=== PATIENT | male | born 1990 | race Caucasian/White ===

== ENCOUNTER 2020-10-16 09:23 | Emergency (ER) | payer BC, SELFPAY ==
[2020-10-16 09:24] VITALS: BP 157/86; PULSE 116; RESP 20; TEMP 36.6; O2SAT 98; BMI 42.0
[2020-10-16 09:39] VITALS: BP 157/86; PULSE 116; RESP 20; TEMP 36.6; O2SAT 97; O2SAT 98
--- NOTE | 2020-10-16 09:44 | EDS_ITS ---
HPI History of Present Illness Chief Complaint: Shortness of Breath Informant: patient Narrative Narrative: Patient is a 30-year-old male who presents to the emergency department for multiple complaints related to Covid. He was diagnosed with Covid on Monday and has had symptoms over the past week. He states that most of his symptoms occur at nighttime. He gets fevers, worsening cough, body aches all at night. Yesterday he was coughing so hard that he passed out. He states that things have calmed down at this point. He has been nauseous and dry heaving and states he cannot keep down fluids very well. His cough has been dry. Denies any significant shortness of breath. He does have left upper quadrant abdominal pain. Patient denies a smoking history. No known medical problems that he takes medications for. No leg swelling or calf pain. Patient does occasionally take Tylenol for symptoms but does not feel this helped so he has not been taking it lately. Patient has been seen 2 other times since onset of symptoms at outside emergency departments. PFSH PFSH Home Medications albuterol sulfate 1 - 2 puff INHALATION Q4H PRN PRN #1 inhaler 03/12/17 [Rx Last Taken Unknown] naproxen 500 mg PO BID PRN #20 tab 03/12/17 [Rx Last Taken Unknown] ondansetron 4 mg PO Q8H PRN PRN #10 tab 03/12/17 [Rx Last Taken Unknown] ondansetron 4 mg PO QHS PRN 4 Days #10 tab 10/16/20 [Rx Last Taken Unknown] Allergy/AdvReac Type Severity Reaction Status Date / Time No Known Allergies Allergy Verified 10/16/20 09:27 Social History Smoking Status: Never smoker [facility] ED Constitutional Constitutional ED: Reports chills and fever(s) Eyes Eyes: Denies change in vision ENT ENT ED: Denies epistaxis or rhinorrhea Cardiovascular Cardiovascular: Denies chest pain or palpitations Respiratory/Chest Respiratory/Chest: Reports cough; Denies dyspnea on exertion or sputum Gastrointestinal Gastrointestinal: Reports abdominal pain, nausea and vomiting Genitourinary Genitourinary ED: Denies dysuria, hematuria or urinary frequency Musculoskeletal Musculoskeletal: Denies back pain or neck pain Integumentary Denies rash Neurologic Neurologic: Denies dizziness or paresthesias EXAM Physical Exam Const Vital Signs: 10/16/20 09:24 10/16/20 09:39 Temperature 98 F 98 F Temperature Source Temporal Temporal Pulse Rate 116 H 116 H Respiratory Rate 20 H 20 H Respiratory Effort Short of Breath Respiratory Depth Shallow Respiratory Pattern Tachypnea Blood Pressure 157/86 H 157/86 H Blood Pressure Mean 109 109 Pulse Ox 98 98 Oxygen Delivery Method Room Air Room Air Positive well nourished and well developed General Appearance ED: well developed and NAD HEENT Reports normocephalic, head/scalp atraumatic and moist mucous membranes Eyes PERRL and EOMs intact bilaterally Neck supple Chest Wall inspection of chest normal Resp normal respiratory effort and clear to auscultation bilaterally Auscultation: Negative for rales, rhonchi or wheezes Cardio regular rhythm and no murmurs Rate: tachycardic GI normal to inspection, nondistended, normoactive bowel sounds and non-tender Palpation: soft; Negative for guarding or rebound tenderness present Extremity normal to inspection General Extremety ED: Negative for edema or tenderness General Extremity: Negative for edema Neuro oriented x3 and no sensory deficits noted Sensorium / Orientation: alert Motor Exam: strength 5/5 throughout Psych mental status grossly normal Skin no rashes or lesions noted MDM MDM MDM Narrative Medical decision making narrative: Patient presents to the emergency department for cough, nausea after being Covid positive. On arrival to the emergency department he is afebrile and satting 98% on room air. He is mildly tachycardic. Will trial oral Zofran and oral fluids as IV fluids can potentially make respiratory symptoms worse with Covid infection. He is given a dose of Tylenol as well for the body aches. Patient otherwise states he is feeling better from last night but called a nursing hotline and they told him to come to the emergency department. At this time he is denying any significant shortness of breath. I do not feel chest x-ray or CT scan is indicated. Lab work not indicated at this time either. Will make sure he can tolerate oral fluids prior to being discharged. On repeat evaluation patient's heart rate did come down to normal. He is resting comfortably. He states he is feeling much better at this time. I will give him a prescription for Zofran as this seemed to help a lot. At this time will discharge home in stable condition. Recommend symptomatic treatment at home. He otherwise has remained stable throughout ED stay. Discharge Plan Triage Chief Complaint: Shortness of Breath ED Provider: Doe Gómez Dx/Rx/DC Orders Clinical Impression: COVID, Nausea, Cough Instructions: Coronavirus Disease 2019 (COVID-19): Caring for Yourself or Others Prescriptions: New ondansetron 4 mg tablet,disintegrating 4 mg PO QHS PRN (Reason: nausea and vomiting) 4 Days Qty: 10 RF: 0 No Action ondansetron 4 MG tablet 4 mg PO Q8H PRN PRN (Reason: Nausea) Qty: 10 RF: 0 albuterol sulfate 1 INHALER inhaler 1 - 2 puff INHALATION Q4H PRN PRN (Reason: Wheezing) Qty: 1 RF: 0 naproxen 500 MG tablet 500 mg PO BID PRN Qty: 20 RF: 0 Primary Care Provider: Care Physician,No Primary Referrals: Care Physician,No Primary [Primary Care Provider] - 1 Week Disposition Disposition: Home, Self Care
[2020-10-16] MEDS: Ondansetron ODT 4 MG Tablet PO (09:59)
[2020-10-16] MEDS: Acetaminophen 325 MG Tablet 650 MG PO (09:59)
[2020-10-16 11:05] VITALS: BP 110/81; PULSE 101; RESP 16; O2SAT 95
== END 2020-10-16 11:06 | disposition home or self-care (01) ==
PROVIDERS: Emergency Provider Emergency Medicine
DX: U07.1 COVID-19 (principal)
CPT/HCPCS: 99283